=== PATIENT | female | born 1970 | race Caucasian/White ===

== ENCOUNTER 2019-12-19 22:01 | Emergency (ER) | payer OTHER ==
[~2019-12-19] VITALS: Ht 157.5 cm; Wt 90.7 kg
[~2019-12-19 22:01] MED LIST: ADVAIR 250-501 EACH INH; ADVAIRDISKUS; HYDROCODON-ACE1 EAC7 PO; IBUPROFEN 600600 M1 PO; KEFLEX500 MG PO; LYRICA 50 MG50 MG PO; LYRICA 75 MG CA75 MG PO; NORCO 5-325 TA1 EACH PO; ONE DAILY COMP1 EAC1 PO; SINGULAIR; SINGULAIR 10 MG10 M1 PO; ZYRTEC; ZYRTEC10 M2 PO; [UNRECOGNIZED DRUG - REMARK]
[2019-12-19] MEDS ORDERED: VITAMIN D310 MCG PO (22:19)
[2019-12-19 23:09] LABS: ABSOLUTE NEUTROPHILS 4.1 thou/uL (1.4-8.2); BASOPHILS 1.2 % (0.0-2.0); EOSINOPHILS 4.5 % (0.0-3.0); HEMATOCRIT 41.1 % (37.0-47.0); HEMOGLOBIN 13.9 gm/dL (12.0-15.0); LYMPHOCYTES 34.9 % (24.0-44.0); MCH 29.9 pg (26.0-34.0); MCHC 33.8 g/dL (28.0-37.0); MCV 88.2 fL (80.0-100.0); MONOCYTES 8.7 % (1.0-8.0); PLATELET COUNT 309 thou/uL (150-400); POLYS 50.7 % (36.0-66.0); RBC 4.66 mil/uL (4.20-5.00); RDW 13.5 % (10.5-14.5); WBC 8.1 thou/uL (4.0-11.0)
[2019-12-19 23:25] LABS: ANION GAP 8 mmol/L (7-16); BUN 13 mg/dL (7-18); CALCIUM 8.6 mg/dL (8.5-10.1); CHLORIDE 104 mmol/L (98-107); CO2 28 mmol/L (21-32); CREATININE 0.8 mg/dL (0.6-1.0); GLUCOSE 111 mg/dL (74-106); POTASSIUM 3.6 mmol/L (3.5-5.1); SODIUM 140 mmol/L (136-145)
[2019-12-19 23:30] LABS: ALBUMIN 3.6 g/dL (3.4-5.0); MAGNESIUM 1.8 mg/dL (1.8-2.4); SGOT 27 U/L (15-37); SGPT 75 U/L (30-65); TOTAL BILIRUBIN 0.2 mg/dL (0.2-1.0); TOTAL PROTEIN 7.6 g/dL (6.4-8.2); TROPONIN-I <0.06 ng/mL (<0.06)
[2019-12-19 23:32] LABS: URINE BILIRUBIN NEGATIVE (Negative); URINE BLOOD TRACE (Negative); URINE CLARITY CLEAR; URINE COLOR YELLOW; URINE GLUCOSE-RANDOM* NEGATIVE (Negative); URINE KETONES NEGATIVE (Negative); URINE NITRITE-REFLEX NEGATIVE (Negative); URINE PROTEIN (DIPSTICK) NEGATIVE (Negative); URINE SPECIFIC GRAVITY 1.025 (1.005-1.035)
[2019-12-19 23:33] LABS: URINE LEUKOCYTES-REFLEX 1+ (Negative)
[2019-12-19 23:54] LABS: SQUAMOUS 0-3 Few /LPF (0-3); URINE RBC 3-10 Few /HPF (0-2); URINE WBC-REFLEX 6-15 Few /HPF (0-5)
[2019-12-19 23:55] LABS: BACTERIA-REFLEX 1-9 Few /HPF (None Seen); CASTS None Seen /LPF (None Seen); CRYSTALS None Seen /LPF (None Seen); MUCUS 4-6 Moderate strn/LPF (None Seen)
[2019-12-19 23:59] VITALS: BP 117/64
--- NOTE | 2019-12-20 07:54 | EKG ---
[facility] [place] [address] ELECTROCARDIOGRAM REPORT Name: CARMEN CATALAN Room #: DEP [facility]#: [id number] Admission: 12/19/19 Attend Phys: Discharge: 12/20/19 Date of : 74 Report #: [id number] THIS REPORT FOR: cc: [facility] - Clinic physician unknown [facility] - Clinic physician unknown Osito Alvarado MD [facility] ~ THIS REPORT FOR: //name// [facility] ED Test Date: 2019-12-19 Test Time: 22:48:17 Pat Name: CARMEN CATALAN Department: Room: Gender: Warehouse [employer]: [facility] : 1970 Requested By: Win Steele Order Number: [id number] MD: Osito Alvarado Measurements Intervals [place] Rate: 63 P: 40 WY: 150 QRS: 50 QRSD: 88 T: 0 QT: 421 QTc: 431 Interpretive Statements Sinus rhythm No significant abnormality Compared to ECG 10/04/2011 01:32:49 No significant changes Electronically Signed On 12-20-2019 7:54:11 CDT by Osito Alvarado [email or web address] <ELECTRONICALLY SIGNED> By: Osito Alvarado MD, FACC 12/20/19 [id number] Osito Alvarado MD, [facility] /EPI
== END 2019-12-20 | disposition home or self-care (01) ==
LOC: ER 22:01
PROVIDERS: Emergency Medicine
DX: J45.909 Unspecified asthma, uncomplicated (principal); Z20.828 Contact with and (suspected) exposure to other viral communicable diseases; R06.00 Dyspnea, unspecified; M79.10 Myalgia, unspecified site; R06.02 Shortness of breath; Z79.899 Other long term (current) drug therapy; Z88.6 Allergy status to analgesic agent; Z91.040 Latex allergy status; Z88.8 Allergy status to other drugs, medicaments and biological substances